=== PATIENT | male | born 1985 | race American Indian/Alaskan Native ===

== ENCOUNTER 2016-12-19 18:08 | Emergency (ER) | payer SELFPAY ==
[2016-12-19 19:05] LABS: Basophils % (Auto) 0.6 % (0.0-1.8); Eosinophils % (Auto) 0.2 % (0.0-4.3); Hematocrit 41.5 % (35.5-45.6); Hemoglobin 13.3 gm/dl (11.8-15.2); Mean Corpuscular HGB Conc 32 % (32-34); Mean Corpuscular Volume 74 fl (84-94); Platelet Count 257 K/mm3 (140-440); Red Blood Count 5.59 M/mm3 (3.65-5.03); Red Cell Distribution Width 14.6 % (13.2-15.2); White Blood Count 12.2 K/mm3 (4.5-11.0)
[2016-12-19 19:09] LABS: Mean Corpuscular Hemoglobin 24 pg (28-32)
[2016-12-19 20:12] LABS: Alanine Aminotransferase 18 units/L (7-56); Albumin 4.6 g/dL (3.9-5); Albumin/Globulin Ratio 1.6 %; Alkaline Phosphatase 73 units/L (35-129); Anion Gap 23 mmol/L; BUN/Creatinine Ratio 14.44; Blood Urea Nitrogen 13 mg/dL (9-20); Calcium 9.7 mg/dL (8.4-10.2); Carbon Dioxide 22 mmol/L (22-30); Chloride 103.7 mmol/L (98-107); Glucose 88 mg/dL (75-100); Lipase 15 units/L (13-60); Potassium 3.7 mmol/L (3.6-5.0); Sodium 145 mmol/L (137-145); Total Protein 7.4 g/dL (6.3-8.2)
[2016-12-20] MEDS ORDERED: ZOFRAN IV ONE (00:31)
[2016-12-20] MEDS ORDERED: SUBLIMAZE IV ONE (00:47)
[2016-12-20] MEDS ORDERED: NACL 0.9% 1000 ML 1,000 ML IV ONE (00:47)
--- NOTE | 2016-12-20 00:53 | Emergency Department Report ---
ED Abdominal Pain HPI - General Chief Complaint: Abdominal Pain Stated Complaint: BELLY PAIN/EMESIS Time Seen by Provider: 12/20/16 00:46 Source: patient Mode of arrival: Wheelchair Limitations: No Limitations - History of Present Illness Initial Comments: Patient is a 31-year-old male with no past medical his presenting to the ER with abdominal pain. Patient reports earlier in the day he had periumbilical pain, described as intermittent,sharp in nature, but over the last few hours it has increased to a constant sharp pain. Associated nausea and vomiting, no radiation or migration. Exacerbated and alleviated by nothing. Patient has not tried any meth-hgf-tonndww medications. No prior episodes of this type of pain. Otherwise no fevers, chills, chest pain, shortness of breath, recent surgery, renal colic, trauma, travel, or sick contacts. MD Complaint: abdominal pain - Related Data Previous Rx's Medication Instructions Recorded Last Taken Type Ondansetron [Zofran Odt] 4 mg PO Q4HR PRN #12 tab.rapdis 12/20/16 Unknown Rx Allergies Allergy/AdvReac Type Severity Reaction Status Date / Time No Known Allergies Allergy Unverified 03/30/15 13:24 ED Review of Systems ROS: Stated complaint: BELLY PAIN/EMESIS Other details as noted in HPI Comment: All other systems reviewed and negative ED Past Medical Hx - Past Medical History Previous Medical History?: No - Surgical History Past Surgical History?: No - Social History Smoking Status: Current Every Day Smoker Substance Use Type: Alcohol, Marijuana - Medications Home Medications: Home Medications Medication Instructions Recorded Confirmed Last Taken Type Ondansetron [Zofran Odt] 4 mg PO Q4HR PRN #12 tab.rapdis 12/20/16 Unknown Rx ED Physical Exam - General Limitations: No Limitations, Other (Pt has a strange affect. Writhing in pain one minute, then still and talking as if nothing is wrong the next. ) General appearance: alert, in no apparent distress - Head Head exam: Present: atraumatic, normocephalic - Eye Eye exam: Present: normal appearance, PERRL, EOMI. Absent: scleral icterus, conjunctival injection Pupils: Present: normal accommodation. Absent: irregular, unequal - ENT ENT exam: Present: mucous membranes moist - Neck Neck exam: Present: normal inspection - Respiratory Respiratory exam: Present: normal lung sounds bilaterally. Absent: respiratory distress, wheezes, rales, rhonchi - Cardiovascular Cardiovascular Exam: Present: regular rate, normal rhythm, normal heart sounds. Absent: systolic murmur, diastolic murmur, rubs, gallop - GI/Abdominal GI/Abdominal exam: Present: soft, tenderness (mild periumbilical tenderness), normal bowel sounds, other (No rebound tenderness, No tenderness at McBurneys point, no Rovsing). Absent: distended, guarding, rebound, rigid, organomegaly, mass, hernia - Rectal Rectal exam: Present: deferred - Extremities Exam Extremities exam: Present: normal inspection, full ROM, normal capillary refill. Absent: tenderness, pedal edema, joint swelling - Back Exam Back exam: Present: normal inspection. Absent: CVA tenderness (R), CVA tenderness (L) - Neurological Exam Neurological exam: Present: alert, oriented X3, CN II-XII intact, normal gait. Absent: motor sensory deficit - Psychiatric Psychiatric exam: Present: normal affect, normal mood - Skin Skin exam: Present: warm, dry, intact, normal color. Absent: rash ED Course Vital Signs 12/19/16 12/20/16 12/20/16 18:24 00:36 00:53 Temperature 98.3 F Pulse Rate 61 88 Respiratory 16 24 18 Rate Blood Pressure 114/70 Blood Pressure 103/67 [Left] O2 Sat by Pulse 100 100 Oximetry 12/20/16 12/20/16 12/20/16 01:23 01:43 02:27 Temperature Pulse Rate 62 Respiratory 18 18 18 Rate Blood Pressure Blood Pressure 102/51 [Left] O2 Sat by Pulse 100 100 Oximetry - Reevaluation(s) Reevaluation #1: 12/20/16 03:56 Pt re-examined, pt reports pain has completely resolved. Results discussed with patient at bedside ED Medical Decision Making - Lab Data Result diagrams: 12/19/16 18:29 12/19/16 19:48 - Radiology Data Radiology results: report reviewed CT a/p: No acute findings, WNL Critical care attestation.: If time is entered above; I have spent that time in minutes in the direct care of this critically ill patient, excluding procedure time. ED Disposition Clinical Impression: Abdominal pain Disposition: DISCHARGED TO HOME OR SELFCARE Is pt being admited?: No Condition: Stable Instructions: Abdominal Pain (ED) Prescriptions: Ondansetron [Zofran Odt] 4 mg PO Q4HR PRN #12 tab.rapdis PRN Reason: Nausea Referrals: PRIMARY CARE,MD [Primary Care Provider] - 3-5 Days
[2016-12-20 01:09] LABS: Bilirubin,Urine NEG (Negative); Blood,Urine NEG (Negative); Ketones,Urine 20 mg/dL (Negative); Leukocyte Esterase,Urine NEG (Negative); Mucus,Urine FEW /HPF; Nitrite,Urine NEG (Negative); Urobilinogen,Urine < 2.0 mg/dL (<2.0)
[2016-12-20 02:28] VITALS: BP 102/51
[2016-12-20] MEDS ORDERED: NACL ONE (02:44)
--- NOTE | 2016-12-20 03:48 | Cat Scan Report ---
FINAL REPORT PROCEDURE: CT ABDOMEN PELVIS W CON TECHNIQUE: Computerized axial tomography of the abdomen and pelvis was performed after the IV injection of iodinated nonionic contrast. HISTORY: periumbilical pain COMPARISON: No prior studies are available for comparison. FINDINGS: Visualized lower thorax: No significant abnormality. Liver: Normal size and attenuation. Spleen: Normal size and attenuation. Gallbladder and biliary system: Normal. Pancreas: Normal. Adrenals: Normal. Kidneys: The kidneys are normal. No hydronephrosis. No renal stones or masses. GI tract: No obstruction. No ileus or enteritis. The cecum and colon are normal. Lymph nodes and mesentery: Normal. Vasculature: Normal. Bladder: Normal. Reproductive organs: Normal. Peritoneum: No free fluid. Musculoskeletal structures: No significant abnormality. Other: None. IMPRESSION: There is no evidence intestinal or urinary tract obstruction. No ileus or enteritis.
== END 2016-12-20 04:43 | disposition home or self-care (01) ==
LOC: ED 18:08
DX: R10.33 Periumbilical pain (principal); R11.2 Nausea with vomiting, unspecified; F17.200 Nicotine dependence, unspecified, uncomplicated; F12.10 Cannabis abuse, uncomplicated
CPT/HCPCS: 36415; 74177; 80053; 81001; 83690; 85025; 96361; 96374; 96375; 99284; J2405; J3010; J7030; Q9967

== ENCOUNTER 2018-08-14 06:32 | Emergency (ER) | payer SELFPAY ==
[2018-08-14] MEDS ORDERED: NACL 0.9% 1000 ML 1,000 ML IV ONE (06:44)
[2018-08-14] MEDS ORDERED: ZOFRAN ODT ONE (07:05)
[2018-08-14] MEDS ORDERED: ZOFRAN ODT PO ONE (07:05)
[2018-08-14 07:07] LABS: Basophils % (Auto) 0.4 % (0.0-1.8); Eosinophils % (Auto) 0.2 % (0.0-4.3); Hematocrit 46.3 % (35.5-45.6); Hemoglobin 14.8 gm/dl (11.8-15.2); Lymphocytes % (Auto) 19.9 % (13.4-35.0); Mean Corpuscular HGB Conc 32 % (32-34); Mean Corpuscular Volume 75 fl (84-94); Monocytes # (Auto) 0.7 K/mm3 (0.0-0.8); Monocytes % (Auto) 7.3 % (0.0-7.3); Platelet Count 339 K/mm3 (140-440); Red Blood Count 6.14 M/mm3 (3.65-5.03); Red Cell Distribution Width 14.7 % (13.2-15.2)
[2018-08-14] MEDS ORDERED: MORPHINE IV ONE ×2 (07:38→09:00)
[2018-08-14] MEDS ORDERED: ZOFRAN IV ONE (07:38)
--- NOTE | 2018-08-14 07:47 | Emergency Department Report ---
ED CPR HPI - General Chief Complaint: Abdominal Pain Stated Complaint: ABDOMINAL PAIN Time Seen by Provider: 08/14/18 07:25 Source: patient Mode of arrival: Stretcher Limitations: No Limitations - Related Data Previous Rx's Medication Instructions Recorded Last Taken Type Ondansetron [Zofran Odt] 4 mg PO Q4HR PRN #12 tab.rapdis 12/20/16 Unknown Rx Allergies Allergy/AdvReac Type Severity Reaction Status Date / Time No Known Allergies Allergy Unverified 03/30/15 13:24 ED Review of Systems ROS: Stated complaint: ABDOMINAL PAIN Other details as noted in HPI Comment: All other systems reviewed and negative Constitutional: denies: chills, fever Eyes: denies: eye pain, eye discharge, vision change ENT: denies: ear pain, throat pain Respiratory: denies: cough, shortness of breath, wheezing Cardiovascular: denies: chest pain, palpitations Endocrine: no symptoms reported Gastrointestinal: denies: abdominal pain, nausea, diarrhea Genitourinary: denies: urgency, dysuria Musculoskeletal: denies: back pain, joint swelling, arthralgia Skin: denies: rash, lesions Neurological: denies: headache, weakness, paresthesias Psychiatric: denies: anxiety, depression Hematological/Lymphatic: denies: easy bleeding, easy bruising ED Past Medical Hx - Past Medical History Previous Medical History?: No Additional medical history: fm hx ulcer - Surgical History Past Surgical History?: No - Social History Smoking Status: Current Every Day Smoker Substance Use Type: Alcohol, Marijuana - Medications Home Medications: Home Medications Medication Instructions Recorded Confirmed Last Taken Type Ondansetron [Zofran Odt] 4 mg PO Q4HR PRN #12 tab.rapdis 12/20/16 Unknown Rx ED Physical Exam - General Limitations: No Limitations General appearance: alert, other (patient is rolling around on the bed crying when I entered the room) - Head Head exam: Present: atraumatic, normocephalic - Eye Eye exam: Present: normal appearance, PERRL, EOMI - ENT ENT exam: Present: mucous membranes moist - Neck Neck exam: Present: normal inspection - Respiratory Respiratory exam: Present: normal lung sounds bilaterally, wheezes, rales, rhonchi. Absent: respiratory distress - Cardiovascular Cardiovascular Exam: Present: regular rate, normal rhythm. Absent: systolic murmur, diastolic murmur, rubs, gallop - GI/Abdominal GI/Abdominal exam: Present: soft, tenderness (diffusely tender to palpation without rebound or guarding), normal bowel sounds. Absent: distended - Rectal Rectal exam: Present: deferred - Extremities Exam Extremities exam: Present: normal inspection - Back Exam Back exam: Present: normal inspection - Neurological Exam Neurological exam: Present: alert, oriented X3 - Psychiatric Psychiatric exam: Present: normal affect, normal mood - Skin Skin exam: Present: warm, dry, intact, normal color. Absent: rash ED Course Vital Signs 08/14/18 06:39 Temperature 98.1 F Pulse Rate 89 Respiratory 18 Rate Blood Pressure 96/71 O2 Sat by Pulse 99 Oximetry ED Medical Decision Making - Lab Data Result diagrams: 08/14/18 06:50 08/14/18 06:50 Critical care attestation.: If time is entered above; I have spent that time in minutes in the direct care of this critically ill patient, excluding procedure time. ED Disposition Condition: Stable
[2018-08-14 07:50] LABS: Alanine Aminotransferase 16 units/L (7-56); Albumin 4.8 g/dL (3.9-5); BUN/Creatinine Ratio 13; Blood Urea Nitrogen 10 mg/dL (9-20); Calcium 10.1 mg/dL (8.4-10.2); Hemolysis Index 3
[2018-08-14 08:08] LABS: INR 0.95 (0.87-1.13)
[2018-08-14] MEDS ORDERED: MORPHINE ONE (08:08)
[2018-08-14 08:09] LABS: Partial Thromboplastin Time 23.4 Sec. (24.2-36.6)
[2018-08-14] MEDS ORDERED: NACL 0.9% 250 ML ONE (08:09)
[2018-08-14 08:29] LABS: Bacteria,Urine 1+ /HPF (Negative); Bilirubin,Urine NEG (Negative); Blood,Urine NEG (Negative); Color,Urine Yellow (Yellow); Mucus,Urine 1+ /HPF; Urobilinogen,Urine < 2.0 mg/dL (<2.0)
--- NOTE | 2018-08-14 09:12 | Emergency Department Report ---
ED General Adult HPI - General Chief complaint: Abdominal Pain Stated complaint: ABDOMINAL PAIN Time Seen by Provider: 08/14/18 07:25 Source: patient Mode of arrival: Stretcher Limitations: No Limitations - History of Present Illness Initial comments: Patient presents to the emergency department with a chief complaint of abdominal pain that started this morning. Patient describes the pain as sharp in nature and diffuse. Patient states she's had abdominal pain like this once before with a negative workup. Patient also complains of nausea vomiting. Patient denies having blood in his vomit. Patient denies any chest pain, shortness breath, or headache. -: Sudden Location: abdomen Radiation: non-radiation Severity scale (0 -10): 10 Quality: stabbing, sharp Consistency: constant Improves with: none Worsens with: none Associated Symptoms: denies other symptoms Treatments Prior to Arrival: none - Related Data Previous Rx's Medication Instructions Recorded Last Taken Type Ondansetron [Zofran Odt] 4 mg PO Q4HR PRN #12 tab.rapdis 12/20/16 Unknown Rx Dicyclomine [Bentyl] 20 mg PO QID PRN #20 tablet 08/14/18 Unknown Rx Ondansetron [Zofran Odt] 4 mg PO Q6H PRN #20 tab.rapdis 08/14/18 Unknown Rx Allergies Allergy/AdvReac Type Severity Reaction Status Date / Time No Known Allergies Allergy Unverified 03/30/15 13:24 ED Review of Systems ROS: Stated complaint: ABDOMINAL PAIN Other details as noted in HPI Constitutional: denies: chills, fever Eyes: denies: eye pain, eye discharge, vision change ENT: denies: ear pain, throat pain Respiratory: denies: cough, shortness of breath, wheezing Cardiovascular: denies: chest pain, palpitations Endocrine: no symptoms reported Gastrointestinal: abdominal pain. denies: nausea, diarrhea Genitourinary: denies: urgency, dysuria Musculoskeletal: denies: back pain, joint swelling, arthralgia Skin: denies: rash, lesions Neurological: denies: headache, weakness, paresthesias Psychiatric: denies: anxiety, depression Hematological/Lymphatic: denies: easy bleeding, easy bruising ED Past Medical Hx - Past Medical History Previous Medical History?: No Additional medical history: fm hx ulcer - Surgical History Past Surgical History?: No - Social History Smoking Status: Current Every Day Smoker Substance Use Type: Alcohol, Marijuana - Medications Home Medications: Home Medications Medication Instructions Recorded Confirmed Last Taken Type Ondansetron [Zofran Odt] 4 mg PO Q4HR PRN #12 tab.rapdis 12/20/16 Unknown Rx Dicyclomine [Bentyl] 20 mg PO QID PRN #20 tablet 08/14/18 Unknown Rx Ondansetron [Zofran Odt] 4 mg PO Q6H PRN #20 tab.rapdis 08/14/18 Unknown Rx ED Physical Exam - General Limitations: No Limitations General appearance: alert, other (patient is rolling around on the bed in pain and tearful) - Head Head exam: Present: atraumatic, normocephalic - Eye Eye exam: Present: normal appearance, PERRL, EOMI - ENT ENT exam: Present: mucous membranes moist - Neck Neck exam: Present: normal inspection - Respiratory Respiratory exam: Present: normal lung sounds bilaterally. Absent: respiratory distress, wheezes, rales - Cardiovascular Cardiovascular Exam: Present: regular rate, normal rhythm. Absent: systolic murmur, diastolic murmur, rubs, gallop - GI/Abdominal GI/Abdominal exam: Present: soft, tenderness (tenderness to palpation throughout the entire abdomen), normal bowel sounds. Absent: distended - Rectal Rectal exam: Present: deferred - Extremities Exam Extremities exam: Present: normal inspection - Back Exam Back exam: Present: normal inspection - Neurological Exam Neurological exam: Present: alert, oriented X3, CN II-XII intact. Absent: motor sensory deficit - Psychiatric Psychiatric exam: Present: normal affect, normal mood - Skin Skin exam: Present: warm, dry, intact, normal color. Absent: rash ED Course Vital Signs 08/14/18 06:39 Temperature 98.1 F Pulse Rate 89 Respiratory 18 Rate Blood Pressure 96/71 O2 Sat by Pulse 99 Oximetry ED Medical Decision Making - Lab Data Result diagrams: 08/14/18 06:50 08/14/18 06:50 Lab Results 08/14/18 08/14/18 08/14/18 Range/Units 06:50 06:50 07:41 WBC 9.9 (4.5-11.0) K/mm3 RBC 6.14 H (3.65-5.03) M/mm3 Hgb 14.8 (11.8-15.2) gm/dl Hct 46.3 H (35.5-45.6) % MCV 75 L (84-94) fl MCH 24 L (28-32) pg MCHC 32 (32-34) % RDW 14.7 (13.2-15.2) % Plt Count 339 (140-440) K/mm3 Lymph % (Auto) 19.9 (13.4-35.0) % Tyler % (Auto) 7.3 (0.0-7.3) % Eos % (Auto) 0.2 (0.0-4.3) % Baso % (Auto) 0.4 (0.0-1.8) % Lymph # 2.0 (1.2-5.4) K/mm3 Tyler # 0.7 (0.0-0.8) K/mm3 Eos # 0.0 (0.0-0.4) K/mm3 Baso # 0.0 (0.0-0.1) K/mm3 Seg Neutrophils % 72.2 H (40.0-70.0) % Seg Neutrophils # 7.1 (1.8-7.7) K/mm3 PT 13.1 (12.2-14.9) Sec. INR 0.95 (0.87-1.13) APTT 23.4 L (24.2-36.6) Sec. Sodium 137 (137-145) mmol/L Potassium 4.1 (3.6-5.0) mmol/L Chloride 98.7 (98-107) mmol/L Carbon Dioxide 24 (22-30) mmol/L Anion Gap 18 mmol/L BUN 10 (9-20) mg/dL Creatinine 0.8 (0.8-1.5) mg/dL Estimated GFR > 60 ml/min BUN/Creatinine Ratio 13 % Glucose 94 (75-100) mg/dL Calcium 10.1 (8.4-10.2) mg/dL Total Bilirubin 0.30 (0.1-1.2) mg/dL AST 23 (5-40) units/L ALT 16 (7-56) units/L Alkaline Phosphatase 81 (35-129) units/L Total Protein 7.8 (6.3-8.2) g/dL Albumin 4.8 (3.9-5) g/dL Albumin/Globulin Ratio 1.6 % Lipase 20 (13-60) units/L Urine Color (Yellow) Urine Turbidity (Clear) Urine pH (5.0-7.0) Ur Specific [place] (1.003-1.030) Urine Protein (Negative) mg/dL Urine Glucose (UA) (Negative) mg/dL Urine Ketones (Negative) mg/dL Urine Blood (Negative) Urine Nitrite (Negative) Urine Bilirubin (Negative) Urine Urobilinogen (<2.0) mg/dL Ur Leukocyte Esterase (Negative) Urine WBC (Auto) (0.0-6.0) /HPF Urine RBC (Auto) (0.0-6.0) /HPF U Epithel Cells (Auto) (0-13.0) /HPF Urine Bacteria (Auto) (Negative) /HPF Urine Mucus /HPF 08/14/18 Range/Units 08:10 WBC (4.5-11.0) K/mm3 RBC (3.65-5.03) M/mm3 Hgb (11.8-15.2) gm/dl Hct (35.5-45.6) % MCV (84-94) fl MCH (28-32) pg MCHC (32-34) % RDW (13.2-15.2) % Plt Count (140-440) K/mm3 Lymph % (Auto) (13.4-35.0) % Tyler % (Auto) (0.0-7.3) % Eos % (Auto) (0.0-4.3) % Baso % (Auto) (0.0-1.8) % Lymph # (1.2-5.4) K/mm3 Tyler # (0.0-0.8) K/mm3 Eos # (0.0-0.4) K/mm3 Baso # (0.0-0.1) K/mm3 Seg Neutrophils % (40.0-70.0) % Seg Neutrophils # (1.8-7.7) K/mm3 PT (12.2-14.9) Sec. INR (0.87-1.13) APTT (24.2-36.6) Sec. Sodium (137-145) mmol/L Potassium (3.6-5.0) mmol/L Chloride (98-107) mmol/L Carbon Dioxide (22-30) mmol/L Anion Gap mmol/L BUN (9-20) mg/dL Creatinine (0.8-1.5) mg/dL Estimated GFR ml/min BUN/Creatinine Ratio % Glucose (75-100) mg/dL Calcium (8.4-10.2) mg/dL Total Bilirubin (0.1-1.2) mg/dL AST (5-40) units/L ALT (7-56) units/L Alkaline Phosphatase (35-129) units/L Total Protein (6.3-8.2) g/dL Albumin (3.9-5) g/dL Albumin/Globulin Ratio % Lipase (13-60) units/L Urine Color Yellow (Yellow) Urine Turbidity Clear (Clear) Urine pH 7.0 (5.0-7.0) Ur Specific [place] 1.032 H (1.003-1.030) Urine Protein 30 mg/dl (Negative) mg/dL Urine Glucose (UA) Neg (Negative) mg/dL Urine Ketones 20 (Negative) mg/dL Urine Blood Neg (Negative) Urine Nitrite Neg (Negative) Urine Bilirubin Neg (Negative) Urine Urobilinogen < 2.0 (<2.0) mg/dL Ur Leukocyte Esterase Neg (Negative) Urine WBC (Auto) 2.0 (0.0-6.0) /HPF Urine RBC (Auto) 2.0 (0.0-6.0) /HPF U Epithel Cells (Auto) < 1.0 (0-13.0) /HPF Urine Bacteria (Auto) 1+ (Negative) /HPF Urine Mucus 1+ /HPF - Radiology Data Radiology results: report reviewed [facility] [address] [place] [address] Cat Scan Report Signed Patient: ZENAIDA KAPOOR MR#: [id number] : 1985 Acct:[id number] Age/Sex: 33 / M ADM Date: 08/14/18 Loc: ED Attending Dr: Ordering Physician: CAILIN WILSON MD Date of Service: 08/14/18 Procedure(s): CT abdomen pelvis w con Accession Number(s): [id number] cc: CAILIN WILSON MD CT ABDOMEN PELVIS WITH CONTRAST: HISTORY: abdominal pain. COMPARISON: 12/20/16. TECHNIQUE: Helical CT in 1.25mm intervals following IV contrast. Sagittal and coronal reconstructions. FINDINGS: Lung bases: Normal. Liver: Normal. Biliary system: Normal. Pancreas: Normal. Spleen: Normal. Kidneys/ureters/bladder: Normal. Adrenal glands: Normal. Aorta: Normal. Intestines: Limited without oral contrast. Moderate to large stool is present throughout the length of the colon. No evidence for GI obstruction or focal inflammation. Appendix: Normal. Pelvic viscera: Normal. Ascites: None. Adenopathy: None. Musculoskeletal: Normal. IMPRESSION: No acute abdominal process is identified. Constipation. Transcribed By: TTR Dictated By: DOTTIE ANGULO JR, MD Electronically Authenticated By: DOTTIE ANGULO JR, MD Signed Date/Time: 08/14/18916 DD/ 5 TD/TT: 08/14/18916 - Medical Decision Making Upon reexamination of the patient at 9:05 AM this pain has greatly improved and he states he feels better Discussed results with the patient including laboratory values and CT Critical care attestation.: If time is entered above; I have spent that time in minutes in the direct care of this critically ill patient, excluding procedure time. ED Disposition Clinical Impression: Abdominal pain Disposition: DC-01 TO HOME OR SELFCARE Is pt being admited?: No Does the pt Need Aspirin: No Condition: Stable Instructions: Abdominal Pain (ED) Additional Instructions: return if worse Prescriptions: Dicyclomine [Bentyl] 20 mg PO QID PRN #20 tablet PRN Reason: pain Ondansetron [Zofran Odt] 4 mg PO Q6H PRN #20 tab.rapdis PRN Reason: Nausea Referrals: ESTIVEN Springer [Other] - 3-5 Days Time of Disposition: 09:33
--- NOTE | 2018-08-14 09:20 | Cat Scan Report ---
CT ABDOMEN PELVIS WITH CONTRAST: HISTORY: abdominal pain. COMPARISON: 12/20/16. TECHNIQUE: Helical CT in 1.25mm intervals following IV contrast. Sagittal and coronal reconstructions. FINDINGS: Lung bases: Normal. Liver: Normal. Biliary system: Normal. Pancreas: Normal. Spleen: Normal. Kidneys/ureters/bladder: Normal. Adrenal glands: Normal. Aorta: Normal. Intestines: Limited without oral contrast. Moderate to large stool is present throughout the length of the colon. No evidence for GI obstruction or focal inflammation. Appendix: Normal. Pelvic viscera: Normal. Ascites: None. Adenopathy: None. Musculoskeletal: Normal. IMPRESSION: No acute abdominal process is identified. Constipation.
[2018-08-14 10:03] VITALS: BP 118/80
== END 2018-08-14 10:10 | disposition home or self-care (01) ==
LOC: ED 06:32
DX: R10.9 Unspecified abdominal pain (principal); F17.200 Nicotine dependence, unspecified, uncomplicated; F12.10 Cannabis abuse, uncomplicated
CPT/HCPCS: 36415; 74177; 80053; 81001; 83690; 85025; 85610; 85730; 96361; 96374; 96375; 99284; J2270; J2405; J7030; Q9967; Q0162